=== PATIENT | female | born 1960 | race Caucasian/White ===

== ENCOUNTER 2020-08-16 07:51 | Outpatient (CLI) | payer BC, SELFPAY ==
--- NOTE | 2020-08-16 07:53 | US_ITS ---
WS: [id number] RIGHT UPPER QUADRANT ULTRASOUND HISTORY: ELEVATED LFT'S COMPARISON: 08/04/2018 Liver: 16.4 cm in length. Liver is top normal size with moderate hepatic steatosis. No bile duct dila tation or mass. Gallbladder: Normally distended gallbladder with no stones or wall thickening. CBD: 0.4 cm Pancreas: Normal size and echogenicity. Right kidney: 9.6 cm in length. Normal size and echogenicity. No hydronephrosis or mass. Aorta and IVC: Unremarkable abdominal aorta and IVC. No ascites. US/US gall bladder [id number] IMPRESSION: 1. Normal gallbladder. 2. Moderate hepatic steatosis.
== END 2020-08-16 07:52 | disposition home or self-care (01) ==
LOC: US 07:52
PROVIDERS: PCP Family Medicine; Visit Provider Family Medicine
DX: R79.89 Other specified abnormal findings of blood chemistry (principal); K76.0 Fatty (change of) liver, not elsewhere classified; Z86.010 Personal history of colon polyps
CPT/HCPCS: 76705; 87635

== ENCOUNTER → 2020-12-20 14:22 | Outpatient (BNVA) | payer BC, SELFPAY | PROVIDERS: PCP Family Medicine; Visit Provider Surgery | DX: Z20.822 Contact with and (suspected) exposure to COVID-19 (principal); Z86.010 Personal history of colon polyps | CPT/HCPCS: 87635 ==

== ENCOUNTER 2020-12-25 07:00 | Day surgery (SDC) | payer BC, SELFPAY ==
[2020-12-23 12:38] VITALS: BMI 24.6
[2020-12-25 07:25] VITALS: BP 139/77; PULSE 102; RESP 16; TEMP 36.3; O2SAT 99
[2020-12-25] MEDS: sodium chloride 0.9% 1,000 ML 30 ML IV (07:39)
--- NOTE | 2020-12-25 07:43 | ANES.PREANE2 ---
Pre-Anesthetic Assessment Pre-Anesthetic Assessment: Height/Weight: Height 1.65 m Weight 67.132 kg Temp Pulse Resp BP Pulse Ox 97.3 F L 102 H 16 139/77 99 12/25/20 07:25 12/25/20 07:25 12/25/20 07:25 12/25/20 07:25 12/25/20 07:25 Preop Diagnosis: History of colon polyps Proposed Procedure: Operation Date: 12/25/20 08:00 Proposed Procedures p Colonoscopy 70392 Z86.010(Not Applicable) - Edwin Garg MD Was Beta Clifford taken within 24 hours: N/A Last intake: Intake Last Liquid Date 12/24/20 Last Liquid Time 21:00 Last Solid Date 12/23/20 Last Solid Time 21:00 Social: Social History: Alcohol and Tobacco Exam: Pre-Anes Outpt Exam: alert, oriented x 3 and regular rate & rhythm Additional Exam Findings (including area of procedure): rhonchi Airway: Submandibular: WNL Cervical ROM: WNL MP: 2 Dentition: False Pulmonary: Pulmonary: COPD GI: GI: GERD Anesthetic Plan: ASA status: 3 Anesthesia: MAC Risk of > 500 ml blood loss (7ml/kg in children): No Meds/Allergies Current Medications: Current Medications Generic Name Dose Route Start Last Admin Trade Name Freq PRN Reason Stop Dose Admin Sodium Chloride 1,000 mls @ 30 ml s/hr 12/25/20 07:30 12/25/20 07:39 Sodium Chloride 0.9% IV 30 mls/hr .Q24H PIPER Administration PFSH Anesthesia PFSH: Medical History History of colon polyps Family History Denies family history of Anesthesia complication Bleeding disorder Social History Smoking and tobacco status: current every day smoker Alcohol intake: former Data Anesthesia Cardiac Studies: No Data to Display
--- NOTE | 2020-12-25 08:25 | W.PM.OPSUD ---
Surgery/Procedure H&P Update DATE OF PROCEDURE: December 25, 2020 DATE H&P PERFORMED: 12/02/20 H&P UPDATE INFORMATION: I have reviewed H&P completed within last 30 days, I have examined patient prior to procedure and No changes to prior documentation PREOP DIAGNOSIS: History of colon polyps PRIMARY INDICATION FOR PROCEDURE: The same PLANNED PROCEDURE: Operation Date: 12/25/20 08:00 Proposed Procedures p Colonoscopy 78104 Z86.010(Not Applicable) - Edwin Garg MD
[2020-12-25 08:53] VITALS: BP 143/96; PULSE 80; RESP 18; TEMP 36.1; O2SAT 100
--- NOTE | 2020-12-25 10:25 | ANE.PACU2 ---
Inpatient post-anesthesia follow up: Airway intact: Yes Vital signs: Temperature 97.0 F Pulse Rate 80 Respiratory Rate 18 Blood Pressure 143/96 Pulse Oximetry 100 Oxygen Delivery Me thod Room Air Oxygen Flow Rate Fraction of Inspir ed Oxygen Hydration adequate: Yes Nausea and vomiting: No Pain level: 1 Mental status: Baseline
== END 2020-12-25 09:15 | disposition home or self-care (01) ==
PROVIDERS: PCP Family Medicine; Visit Provider Surgery
PROC: 0DJD8ZZ Inspection of Lower Intestinal Tract, Via Natural or Artificial Opening Endoscopic (ICD-10-PCS; CPT 45378; principal; 2020-12-25 08:00)
DX: Z86.010 Personal history of colon polyps (principal); J44.9 Chronic obstructive pulmonary disease, unspecified; K21.9 Gastro-esophageal reflux disease without esophagitis; F17.210 Nicotine dependence, cigarettes, uncomplicated
CPT/HCPCS: 45378; J2704; J7030

== ENCOUNTER 2021-08-29 08:25 | Outpatient (CLI) | payer BC, SELFPAY ==
--- NOTE | 2021-08-29 08:45 | MR_ITS ---
WS: [id number] MRI BRAIN WITH AND WITHOUT CONTRAST HISTORY: HEADACHE, POST TRAUMATIC COMPARISON: CT head 08/09/2018 TECHNIQUE: Multiplanar imaging performed through the brain with MultiHance 12 ml's IV. No acute infarcts are seen. Wilkerson-white matter differentiation is well preserved. Mild symmetric cereb ral atrophy. There are a few scattered T2 and FLAIR signal hyperintensities which are appropriate for the patient's age. No large infarcts. No susceptibility artifacts or prior lacunar infarcts. Ventricles and extra-axial spaces are normal. Clivus and pituitary gland are normal. Visualized posterior fossa and brainstem are also normal. Postcontrast images are negative for masses or vascular malformations. Dural venous sinuses are normal. Paranasal sinuses: Well aerated with no significant disease. Mastoid air cells: Normal. Calvarium and scalp: Normal. MR/MR head wo/w con [id number] IMPRESSION: 1. No acute hemorrhage or infarct. 2. Mild symmetric atrophy and very mild chronic microvascular ischemic type ch anges that are probably related to aging. 3. No enhancing mass or vascular malformations.
[2021-08-29] MEDS: gadobenate dimeglumine 20 mL vial IV (09:29)
== END 2021-08-29 08:26 | disposition home or self-care (01) ==
PROVIDERS: PCP Family Medicine; Visit Provider Family Medicine
DX: G44.309 Post-traumatic headache, unspecified, not intractable (principal); G31.9 Degenerative disease of nervous system, unspecified; I67.82 Cerebral ischemia
CPT/HCPCS: 70553; A9577

== ENCOUNTER 2021-10-03 09:44 | Emergency (ER) | payer BC, SELFPAY ==
[2021-10-03 10:16] VITALS: BP 126/81; PULSE 86; RESP 18; TEMP 37.3; O2SAT 98; BMI 24.1
--- NOTE | 2021-10-03 10:23 | XRR_ITS ---
PROCEDURE INFORMATION: Exam: XR Chest Exam date and time: 10/03/2021 10:23 AM Age: 61 years old Clinical indication: Dyspnea; Patient HX: History--n/v x 4 days TECHNIQUE: Imaging protocol: XR of the chest. Views: 1 view. Total images: 1 COMPARISON: CR Chest 1 [place] [id number] 08/09/2018 7:43 AM FINDINGS: Lungs: Unremarkable. No consolidation. Pleural spaces: Unremarkable. No pleural effusion. No pneumothorax. Heart/Mediastinum: Unremarkable. No cardiomegaly. Vasculature: Atherosclerosis is evident. Bones/joints: Unremarkable. XR/XR chest 1V portable [id number] IMPRESSION: No acute findings. Radiation Dose CTDIVOL = (mGy): DLP = (mGy-cm)
--- NOTE | 2021-10-03 10:40 | W.ED.GENADLT ---
HPI - General Adult General: Chief complaint: General Medical Stated complaint: SICK X 4 DAYS: N/V/D, STATES NO FEVER Time Seen by Provider: 10/03/21 10:22 History of Present Illness: HPI narrative: CC: Shortness of breath, fever and generalized weakness HPI: This is a [61] yo patient w/ no PMH presenting to the ED with malaise, generalized weakness, cough, nausea/vomiting/ diarrhea x 4days. Patient tells me both she and her mother has had similar symptoms for the last 4 days after celebrating Thanksgiving. Since onset of symptoms, has had some shortness of breath and decreased PO intake. NO recent travel. Denies chest pain, N/V, diaphoresis, exertional shortness of breath, GI or other complaints. Denies any pleuritic chest pain, recent surgery/immobilization/travel, or hematemesis or hx of VTE in the past. Onset: [4] days ago Duration: ongoing for the last [4] days Location: home Severity: mild/moderate Review of Systems Narrative: Constitutional: No subjective fever, no generalized weakness HEENT: No vision changes CV: No chest pain, no palpitations PULM: +cough, no dyspnea. GI: +diffuse abdominal pain, +N/+V/+D. : No dysuria MSKEL: No muscle pain SKIN: No new rashes, no lesions. NEURO: No headache, no focal weakness. +headace HEME: No visible bruises PSYCH: Normal mood [facility] PFSH: Medical History (Updated 10/03/21 @ 10:45 by Nata Seals MD) History of colon polyps Family History Denies family history of Anesthesia complication Bleeding disorder Social History Smoking and tobacco status: current every day smoker Alcohol intake: former Physical Exam Narrative: EXAM NARRATIVE: Head: Atraumatic Eyes: PERRL, conjunctiva without injection ENT: Mucous membrane moist NECK: Supple without lymphadenopathy LUNGS: LCTAB CV: RRR ABDOMEN: Soft, +mild diffuse tenderness to palpatio. NO guarding rebound, guarding, rigidity. No CVA tenderness to percussion. Neg Garcia/Neg McBurney's point tenderness, no suprabupic tenderness to palpation. EXTREMITY: Normal ROM SKIN: No rash or erythema NEURO: Awake and alert. No focal motor deficits. PSYCH: Normal mood and affect. Course Vital Signs: Vital signs: Vital Signs Temperature 99.1 F 10/03/21 10:16 Pulse Rate 82 10/03/21 15:33 Respiratory Rate 18 10/03/21 15:33 Blood Pressure 121/80 10/03/21 15:33 Pulse Oximetry 99 10/03/21 15:33 MDM - General Adult MDM Narrative: Medical decision making narrative: [61]yo patient presenting to the ED with shortness of breath, cough, and malaise concerning for pneumonia with findings of fever, decreased/junky breath sounds, and tachypnea. Workup today includes XR chest Defer lab work at this time given that the patient is well appearing with stable vital signs and without recent hospitalization or care facility stay. Given History, Exam, and Workup presentation most consistent with pneumonia.Presentation not consistent with PE, COPD exacerbation, Pneumothorax, TB, Atypical ACS, Esophageal Rupture, Toxic Exposure, Foreign Body Airway Obstruction. Workup: CBC, BMP, covid PCR/antigen, influenza Intervention: Tylenol, benadryl, reglan, IVF, po challenge, reassess On reassessment, XR without any focal consolidations. Findings consistent with viral pneumonia, suspected COVID. Clinically, fever improved with tylenol. Patient is no longer in respiratory distress, tolerating PO, and able to ambulate. The patient continues to be hemodynamically stable while observed in the ED, in no acute respiratory distress. O2 sats > 95% while observed in the ER. No significant comorbidities today which indicate that the patient is a candidate for outpatient care. Plan discussed with the patient who agrees with outpatient evaluation. Rx: Tylenol 500mg Q6HRs PRN fever/pain, zofran PRN nausea/vomiting, pepcid/maalox PRN dyspesia Disposition: Discharge. Strict return instructions discussed at bedside including any signs of respiratory distress, dehydration, persistent fever, or any new or concerning symptoms. Patient in agreement with the plan and reassures me that the patient will follow up a primary care provider in 24-48 hrs for revaluation. Lab Data: Labs: Lab Results 10/03/21 10/03/21 10/03/21 11:20 11:20 11:20 WBC 5.1 10^3/uL 10^3/ uL (4.0-10.0) RBC 4.34 10^6/uL 10^6 /uL (4.1-5.3) Hgb 14.0 g/dL g/dL (11.5-15.3) Hct 40.2 % % (37.0-47.0) MCV 92.6 fl fl (81-99) MCH 32.3 pg pg (28.0-34.0) MCHC 34.8 g/dL g/dL (30.0-36.0) RDW 20.4 % H % (12.1-15.1) Plt Count 147 10^3/cmm 10^3 /cmm (130-400) MPV 9.6 fL fL (7.4-10.4) Neut % (Auto) 69.8 % % Lymph % (Auto) 24.9 % % [place] % (Auto) 4.1 % % Eos % (Auto) 0.2 % % Baso % (Auto) 0.8 % % Neut # (Auto) 3.56 10^3/uL 10^3 /uL (1.8-7.7) Lymph # (Auto) 1.3 10^3/uL 10^3/ uL (0.8-4.8) [place] # (Auto) 0.2 10^3/uL 10^3/ uL (0.2-0.9) Eos # (Auto) 0.0 10^3/uL 10^3/ uL (0.0-0.8) Baso # (Auto) 0.0 10^3/uL 10^3/ uL (0.0-0.1) Nucleated RBC % (a uto) 0 % % Nucleated RBCs # 0.0 /100WBC /100W BC Sodium 133 mmol/L L mmol /L (136-145) Potassium 3.0 mmol/L L mmol /L (3.5-5.1) Chloride 90 mmol/L L mmol/ L (98-107) Carbon Dioxide 26 mmol/L mmol/L (22-29) Anion Gap 20.0 H (5-19) BUN 17 mg/dL mg/dL (6-20) Creatinine 0.4 mg/dL L mg/dL (0.5-0.9) GFR Calculation 163.4 mL/min H mL /min (90-130) Glucose 87 mg/dL mg/dL (65-115) Calculated Osmolal ity 277 mOsm/kg L mOs m/kg (285-295) Calcium 8.9 mg/dL mg/dL (8.5-10.5) Total Bilirubin 1.1 mg/dL mg/dL (0.15-1.2) AST 421 U/L H U/L (0-32) ALT 110 U/L H U/L (0-33) Alkaline Phosphata se 280 IU/L H IU/L (35-105) Total Protein 6.3 g/dL L g/dL (6.6-8.7) Albumin 3.5 g/dL g/dL (3.5-5.2) Globulin 2.8 g/dL g/dL (1.3-4.6) Lipase 18 U/L U/L (13-60) Nasal/Oral COVID-1 9 PCR Influenza Type A A g Negative (Negative) Influenza Type B A g Negative (Negative) SARS-CoV-2 RNA (RT -PCR) SARS-CoV-2 Ag (Rap id) 10/03/21 10/03/21 10/03/21 11:20 11:20 11:20 WBC RBC Hgb Hct MCV MCH MCHC RDW Plt Count MPV Neut % (Auto) Lymph % (Auto) [place] % (Auto) Eos % (Auto) Baso % (Auto) Neut # (Auto) Lymph # (Auto) [place] # (Auto) Eos # (Auto) Baso # (Auto) Nucleated RBC % (a uto) Nucleated RBCs # Sodium Potassium Chloride Carbon Dioxide Anion Gap BUN Creatinine GFR Calculation Glucose Calculated Osmolal ity Calcium Total Bilirubin AST ALT Alkaline Phosphata se Total Protein Albumin Globulin Lipase Nasal/Oral COVID-1 9 PCR Cancelled Influenza Type A A g Influenza Type B A g SARS-CoV-2 RNA (RT -PCR) Not detected (NOT DETECTED) SARS-CoV-2 Ag (Rap id) Negative (Negative) Imaging Data^: Other Imaging: Radiologist's impression: [address] [id number] ReportSigned Patient: Martha Rubio Biachaparrita #: [id number]: 2Acct#:[id number]/Sex: 61 / FADM Date: 10/03/21Loc: ERRoom/Bed:Attending Dr: Ordering Provider/Ordering MD: Nata Seals MD Date of Service: 10/03/21 Procedure(s): XR chest 1V portable [id number] Accession Number(s): [id number] Report Number: [id number] PROCEDURE INFORMATION: Exam: XR Chest Exam date and time: 10/03/2021 10:23 AM Age: 61 years old Clinical indication: Dyspnea; Patient HX: History--n/v x 4 days TECHNIQUE: Imaging protocol: XR of the chest. Views: 1 view. Total images: 1 COMPARISON: CR Chest 1 [place] [id number] 08/09/2018 7:43 AM FINDINGS: Lungs: Unremarkable. No consolidation. Pleural spaces: Unremarkable. No pleural effusion. No pneumothorax. Heart/Mediastinum: Unremarkable. No cardiomegaly. Vasculature: Atherosclerosis is evident. Bones/joints: Unremarkable. XR/XR chest 1V portable [id number] IMPRESSION: No acute findings. Radiation Dose CTDIVOL = (mGy): DLP = (mGy-cm) Dictated By:Roberto Villa MDSigned By:Roberto Villa MDSigned Date/Time:10/03/21 1132DD/ 1023 Discharge Plan Discharge Patient Disposition: Home Clinical Impression: Headache, Nausea, Diarrhea, Generalized weakness Condition: Stable Prescriptions: New acetaminophen 500 mg tablet 500 mg PO Q6H PRN (Reason: pain) 5 Days Qty: 20 RF: 0 Pepcid 20 mg tablet 20 mg PO BID PRN (Reason: abdominal pain) 10 Days Qty: 20 RF: 0 Maalox Advanced 1,000-60 mg tablet,chewable 1 tab PO TID PRN (Reason: abdominal pain) 7 Days Qty: 21 RF: 0 potassium chloride 10 mEq capsule, extended release 10 meq PO DAILY 5 Days RF: 0 No Action budesonide-formoterol [Symbicort] 160-4.5 mcg/actuation Hfa Aerosol Inhaler 2 puff INHALATION BID PRN (Reason: Shortness Of Breath) RF: 0 Excedrin Extra Strength 250-250-65 mg Tablet 2 tab PO Q6H PRN (Reason: Headache) RF: 0 Discharge Orders: Discharge ED (Routine); Ordered 10/03/21 Ordered By: Nata Seals Referrals: Mino Patrick MD [Primary Care Provider] - Discharge Diet: Advance as tolerated Discharge Activity: Resume usual activity Activity Restrictions/Additional Instructions: Come back to the emergency room if your symptoms worsen, have any shortness of breath, fever/chills, dehydration, inability tolerate p.o., any difficulty breathing, or any new or concerning complaints. Coding Level of Care Code ED Knobber for Angella Lara
[2021-10-03] MEDS: sodium chloride 0.9% 1,000 ML 999 ML IV (11:15)
[2021-10-03] MEDS: ondansetron 2 mg/ML SDV 2 mL 4 MG IVP (11:18)
[2021-10-03] MEDS: diphenhydrAMINE 50 mg/mL SDV 1mL IVP (11:19)
[2021-10-03] MEDS: metoclopramide 5 mg/mL SDV 2 mL IVP (11:23)
[2021-10-03] MEDS: acetaminophen 500 mg Tablet 1000 MG PO (11:24)
[2021-10-03 11:45] LABS: Basophils % 0.8 %; Eosinophils % 0.2 %; Hematocrit 40.2 % (37.0-47.0); Lymphocytes # 1.3 10^3/uL (0.8-4.8); Lymphocytes % 24.9 %; Mean Corpuscular HGB Conc 34.8 g/dL (30.0-36.0); Mean Corpuscular Hemoglobin 32.3 pg (28.0-34.0); Mean Corpuscular Volume 92.6 fl (81-99); Mean Platelet Volume 9.6 fL (7.4-10.4); Monocytes # 0.2 10^3/uL (0.2-0.9); Monocytes % 4.1 %; Neutrophils # 3.56 10^3/uL (1.8-7.7); Neutrophils % 69.8 %; Nucleated Red Blood Cells % 0 %; Platelet Count 147 10^3/cmm (130-400); Red Blood Count 4.34 10^6/uL (4.1-5.3); Red Cell Distribution Width 20.4 % (12.1-15.1); White Blood Count 5.1 10^3/uL (4.0-10.0)
[2021-10-03 12:12] LABS: Alanine Aminotransferase 110 U/L (0-33); Albumin Level 3.5 g/dL (3.5-5.2); Alkaline Phosphatase 280 IU/L (35-105); Aspartate Amino Transferase 421 U/L (0-32); Blood Urea Nitrogen 17 mg/dL (6-20); Calcium 8.9 mg/dL (8.5-10.5); Carbon Dioxide 26 mmol/L (22-29); Chloride 90 mmol/L (98-107); Globulin 2.8 g/dL (1.3-4.6); Glomerular Filtration Rate 163.4 mL/min (90-130); Glucose 87 mg/dL (65-115); Lipase 18 U/L (13-60); Osmolality Calculated 277 mOsm/kg (285-295); Sodium 133 mmol/L (136-145); Total Bilirubin 1.1 mg/dL (0.15-1.2); Total Protein 6.3 g/dL (6.6-8.7)
[2021-10-03 12:55] LABS: SARS Covid-2 Antigen Negative (Negative)
[2021-10-03 13:02] LABS: Influenza A by IFA Negative (Negative); Influenza B by IFA Negative (Negative)
[2021-10-03] MEDS: potassium chloride ER 20 mEq Tablet 40 MEQ PO (13:23)
[2021-10-03 15:33] VITALS: BP 121/80; PULSE 82; RESP 18; O2SAT 99
[2021-10-04 14:47] LABS: Quest SARS-CoV-2 RNA NOT DETECTED (NOT DETECTED)
--- NOTE | 2021-10-04 16:15 | PC.NURSE ---
Pt notifed of Negative COVID results
--- NOTE | 2021-10-04 16:18 | PC.NURSE ---
Pt notified of Negative COVID result
== END 2021-10-03 15:34 | disposition home or self-care (01) ==
PROVIDERS: Emergency Provider Emergency Medicine; PCP Family Medicine
DX: R51.9 Headache, unspecified (principal); R11.0 Nausea; R19.7 Diarrhea, unspecified; R53.1 Weakness; F17.210 Nicotine dependence, cigarettes, uncomplicated; Z20.822 Contact with and (suspected) exposure to COVID-19
CPT/HCPCS: 71045; 80053; 83690; 85025; 87426; 87635; 87804; 96361; 96374; 96375; 99284; J1200; J2405; J2765; J7030

== ENCOUNTER → 2022-04-01 13:25 | Outpatient (BNVA) | payer BC, SELFPAY | PROVIDERS: PCP Family Medicine; Visit Provider Family Medicine | DX: R63.4 Abnormal weight loss (principal); R05.9 Cough, unspecified; R79.89 Other specified abnormal findings of blood chemistry | CPT/HCPCS: 80053; 83690; 83880; 85025; 85651; 86140 ==

== ENCOUNTER 2022-04-15 13:46 | Outpatient (CLI) | payer BC, SELFPAY ==
--- NOTE | 2022-04-15 14:13 | CT_ITS ---
WS: [id number] CT CHEST AND ABDOMEN WITH CONTRAST. CONTRAST HISTORY: WEIGHT LOSS/COUGH/ELEVATED LFT'S TECHNIQUE: Axial imaging is performed through the chest and abdomen with IV and oral contrast.. Sagit dot and coronal reformats. All CT scans at [facility] use at least one of these dose optimiza tion techniques: automated exposure control; mA and/or kV adjustment per patient size (includes targe zeke exams where dose is matched to clinical indication); or iterative reconstruction. CONTRAST: Omnipaque 300; 75 mL IV. DLP: 958.57 mGy.cm COMPARISON: Chest CT 01/26/[address] 03/27/2010, gallbladder ultrasound 08/16/[address]: Mild chronic emphysema. New pulmonary nodule LEFT upper lobe is slightly spiculated measuring 9 x 6 m m with adjacent subsolid opacification. No additional nodules or mass. No pneumonia. Normal size hear t. Moderate atherosclerotic plaque throughout the aorta. Pulmonary artery size is normal. No pulmonar y embolism. No enlarged lymph nodes. No pleural or pericardial effusion. Dense fibroglandular tissue within each breast and calcifications. No prior mammograms available for comparison or review. Abdomen CT: Liver is top normal size. Spleen measures 10.5 cm in length. No bile duct dilatation. Normal appearan ce of the portal vein. The gallbladder is contracted with wall enhancement and adjacent fluid. Suspec t there may be stones present within the gallbladder. The common bile duct remains normal. Pancreas a nd adrenal glands are negative. No renal obstruction. LEFT renal cyst lower pole measures 3.3 x 3.7 c m. Abdominal aorta is mildly ectatic with extensive atherosclerotic plaque. There is calcified plaque wi th asymmetric thrombus within the lumen. Maximum diameter 2.8 cm. Moderate calcification extends into the proximal iliac arteries. No ascites or adenopathy. Visualized GI tract is negative. CT/CT chest abdomen w con* IMPRESSION: 1. New LEFT upper lobe pulmonary nodule measures 9 x 6 mm. Early neoplasm need s to be considered. Recommend follow-up PET/CT imaging or [address] foll ow-up. 2. No mediastinal or hilar adenopathy. 3. Abnormal gallbladder. Contracted gallbladder with enhancement and increased attenuation. Recommend follow-up gallbladder ultrasound to evaluate for acute versus chronic cholecystitis. Gallbladder ultrasound was normal on 08/16/2020. 4. No bile duct dilatation. 5. Moderate atherosclerotic plaque throughout the abdominal aorta with no aneu rysm. 6. LEFT renal cyst. 7. Dense breasts with calcifications. Mammographic evaluation of the breasts s hould be considered. 8. Emphysema.
[2022-04-15] MEDS: iohexol 300 mg/mL 50 mL Btl PO (14:23)
[2022-04-15] MEDS: iohexol 300 mg/mL 100 mL Btl IV (15:27)
== END 2022-04-15 13:47 | disposition home or self-care (01) ==
PROVIDERS: PCP Family Medicine; Visit Provider Family Medicine
DX: R63.4 Abnormal weight loss (principal); R05.9 Cough, unspecified; R79.89 Other specified abnormal findings of blood chemistry
CPT/HCPCS: 71260; 74160

== ENCOUNTER 2022-05-08 06:02 | Outpatient (CLI) | payer BC, SELFPAY ==
--- NOTE | 2022-05-08 11:42 | MM_ITS ---
WS: [id number] BILATERAL SCREENING DIGITAL BREAST TOMOSYNTHESIS MAMMOGRAM WITH CAD HISTORY: SCREENING COMPARISON: 01/10/2014 Bilateral CC and MLO views with tomosynthesis and synthetic mammography submitted. Computer aided det ection analyzed. Breast composition: The breasts are heterogeneously dense, which may obscure small masses. No suspici ous masses, microcalcifications or architectural distortion. Numerous calcifications have developed w ithin each breast centrally since the prior study. These are very dense coarse calcifications. MM/[place] [id number] IMPRESSION: BI-RADS: 2-Benign FOLLOW UP: 1 Year Follow-up
== END 2022-05-08 06:03 | disposition home or self-care (01) ==
LOC: RAD 06:03
PROVIDERS: PCP Family Medicine; Visit Provider Family Medicine
DX: Z12.31 Encounter for screening mammogram for malignant neoplasm of breast (principal)
CPT/HCPCS: 77063; 77067

== ENCOUNTER 2022-05-08 06:03 | Outpatient (CLI) | payer BC, SELFPAY ==
--- NOTE | 2022-05-08 06:15 | US_ITS ---
WS: [id number] RIGHT UPPER QUADRANT ULTRASOUND HISTORY: RUQ PAIN COMPARISON: 08/16/2020 Liver: 16.5 cm in length. Normal size liver. Very mild coarse echotexture. No mass or bile duct dilat ation. Portal Vein: Normal hepatopetal flow with monophasic waveform. Gallbladder: Contracted gallbladder filled with stones. There may be a small amount of sludge also wi thin the gallbladder lumen. CBD: 0.2 cm Pancreas: Partially visualized. No abnormality detected. Right kidney: 10.4 cm in length. Normal size and echogenicity. No hydronephrosis or mass. Aorta and IVC: Unremarkable abdominal aorta and IVC. No ascites. US/US gall bladder [id number] IMPRESSION: 1. Stone filled contracted gallbladder. No bile duct dilatation. Stones were n ot identified on the prior ultrasound of 08/16/2020. 2. Minimal hepatic steatosis. Improved overall since the prior study.
== END 2022-05-08 06:04 | disposition home or self-care (01) ==
LOC: RAD 06:03
PROVIDERS: PCP Family Medicine; Visit Provider Family Medicine
DX: R10.11 Right upper quadrant pain (principal); K80.20 Calculus of gallbladder without cholecystitis without obstruction
CPT/HCPCS: 76705

== ENCOUNTER 2022-06-29 10:26 | Day surgery (SDC) | payer BC, SELFPAY ==
[2022-06-29] VITALS (8 sets, daily range): BP systolic 126–158; BP diastolic 80–92; PULSE 69–82; RESP 18–19; TEMP 36.1–36.7; O2SAT 95–100
--- NOTE | 2022-06-29 11:05 | ANES.PREANE2 ---
Pre-Anesthetic Assessment Height/Weight: Height 1.65 m Weight 54.431 kg Temp Pulse Resp BP Pulse Ox O2 Del Method 97.3 F L 77 18 150/91 95 06/29/22 10:48 06/29/22 10:48 06/29/22 10:48 06/29/22 10:48 06/29/22 10:48 06/29/22 10:53 Preop Diagnosis: Symptomatic cholelithiasis Operation Date: 06/29/22 12:05 Proposed Procedures p Laparoscopic Cholecystectomy(Not Applicable) - Austin Mcadams DO Familial anesthetic complications: None Was Beta Clifford taken within 24 hours: N/A Was Clonidine taken within 24 hours: N/A Last intake: Intake Last Liquid Date 06/28/22 Last Liquid Time 18:00 Last Solid Date 06/28/22 Last Solid Time 18:00 Social Alcohol (1-2 vodkas a night) and Tobacco Exam alert, oriented x 3, clear to auscultation bilaterally and regular rate & rhythm Airway Mallampati: Class III Dentition: other (no teeth) Pulmonary Chronic Obstructive Pulmonary Disease CV/HEM None reported GI Gastroesophageal Reflux Disease Anesthetic Plan ASA status: 3 Anesthesia: General Risk of > 500 ml blood loss (7ml/kg in children): No Medications/Allergies Home Medications Medication Instructions Recorded Confirmed Last Taken Type vpnpzcw-sufegbzqretvn-uzggyhoy 250 2 tab PO Q6H PRN Headache 12/23/20 06/29/22 06/26/22 History mg-250 mg-65 mg tablet (Excedrin Extra Strength) budesonide-formoterol HFA 160 2 puff inhalation BID PRN 12/23/20 06/29/22 06/28/22 History mcg-4.5 mcg/actuation aerosol Shortness Of Breath inhaler (Symbicort) acyclovir 200 mg capsule 200 mg PO DAILY 06/03/22 06/29/22 06/28/22 History rabeprazole 20 mg tablet,delayed 20 mg PO DAILY 06/03/22 06/29/22 06/28/22 History release Allergies Allergy/AdvReac Type Severity Reaction Status Date / Time No Known Allergies Allergy Verified 06/03/22 09:15 [facility] Anesthesia Medical History (Updated 06/03/22 @ 09:40 by Austin Mcadams DO) History of colon polyps Symptomatic cholelithiasis Surgical History History of colonoscopy with polypectomy (~2014) History of hysterectomy History of laparoscopic appendectomy Family History Denies family history of Anesthesia complication Bleeding disorder Social History Smoking and tobacco status: current every day smoker Alcohol intake: former Data Anesthesia Cardiac Studies: No Data to Display
[2022-06-29] MEDS: sodium chloride 0.9% 1,000 ML 30 ML IV (11:22)
--- NOTE | 2022-06-29 13:19 | W.PM.OPSUD ---
Surgery/Procedure H&P Update DATE OF PROCEDURE: June 29, 2022 DATE H&P PERFORMED: 06/03/22 PREOP DIAGNOSIS: Symptomatic cholelithiasis PLANNED PROCEDURE: Operation Date: 06/29/22 12:05 Proposed Procedures p Laparoscopic Cholecystectomy(Not Applicable) - Austin Mcadams DO
[2022-06-29] MEDS: ceFAZolin 2,000 MG in sodium chloride 0.9% (plus) 50 ML 100 MG IV (13:26)
--- NOTE | 2022-06-29 14:13 | P.OP_ITS ---
Operative Report Date of procedure: June 29, 2022 Pre-op diagnosis: Preop Diagnosis Symptomatic cholelithiasis Post-op diagnosis: same Procedure done: Laparoscopic cholecystectomy Specimens removed/disposition: Gallbladder Surgeon: Dr. Austin Mcadams DO Anesthesia: General Estimated blood loss (mL): 5 Complications: None apparent Brief History: Patient with symptomatic cholelithiasis was a candidate for laparoscopic cholecystectomy. The risks and benefits of the procedure were explained and documented Procedure: Patient was wheeled into the operative room and placed on the OR table in a supine position. Abdomen was inspected prepped and draped in usual sterile fashion. Time-out was performed and all present were in agreement. A 15 blade scalp was used to make a stab incision in the left upper quadrant and intra- abdominal insufflation was achieved using a Veress needle. After localizing the tissue incisions were made and a 5 millimeter trocar was placed into the umbilicus as well as 2 in the right upper quadrant. A 12 millimeter trocar was placed in the epigastrium. Gallbladder was grasped and elevated. The triangle of Calot was carefully dissected using blunt dissection and electrocautery until the triangle of Calot clearly identified. The cystic duct was clipped proximally and double clipped distally. The duct was then ligated proximally. The cystic artery was doubly clipped and ligated. The gallbladder was then removed from the liver bed using electrocautery. The gallbladder was removed from the abdomen using an Endo-Catch bag through the epigastric incision. The liver bed was inspected and no bleeding was seen. The abdomen was irrigated and suctioned. All ports removed. Skin was washed and dried. Incisions were closed with 3-0 and 4-O Vicryl in a subcuticular interrupted fashion. Skin glue was applied. Patient tolerated the procedure well.
[2022-06-29] MEDS: ondansetron 2 mg/ML SDV 2 mL 4 MG IVP (14:35)
--- NOTE | 2022-06-29 14:45 | ANE.PACU2 ---
Inpatient post-anesthesia follow up: Airway intact: Yes Vital signs: Temperature 98.0 F Pulse Rate 72 Respiratory Rate 19 Blood Pressure 139/81 Pulse Oximetry 100 Oxygen Delivery Me thod Room Air Oxygen Flow Rate 6 Fraction of Inspir ed Oxygen Hydration adequate: Yes Nausea and vomiting: No Pain level: 1 Mental status: Baseline
[2022-06-29] MEDS: HYDROcodone-acetaminophen 7.5-325 mg Tablet 1 TAB PO (15:21)
== END 2022-06-29 15:39 | disposition home or self-care (01) ==
PROVIDERS: PCP Family Medicine; Visit Provider Surgery
PROC: 0FT44ZZ Resection of Gallbladder, Percutaneous Endoscopic Approach (ICD-10-PCS; CPT 47562; principal; 2022-06-29 11:55)
DX: K80.10 Calculus of gallbladder with chronic cholecystitis without obstruction (principal); F17.200 Nicotine dependence, unspecified, uncomplicated
CPT/HCPCS: 47562; 88304; J0330; J1100; J2250; J2405; J2704; J2710; J3010; J3490; J7030

== ENCOUNTER 2022-09-23 07:20 | Outpatient (CLI) | payer BC, SELFPAY ==
--- NOTE | 2022-09-23 07:30 | CT_ITS ---
WS: [id number] CT CHEST WITHOUT INTRAVENOUS CONTRAST HISTORY: lung nodule f/u TECHNIQUE: Contiguous 5 mm axial imaging performed on the thorax. Coronal and sagittal reformats are submitted. All CT scans at [facility] use at least one of these dose optimization techniques: automated exposure control; mA and/or kV adjustment per patient size (includes targeted exams where dose is matched to clinical indication); or iterative reconstruction. CONTRAST: None DLP: 605.39 mGy.cm COMPARISON: 04/15/2022 Lungs and central airway: Previously described LEFT upper lobe pulmonary nodule has significantly dec reased in size now measuring 4.7 mm. No new or additional nodules. Mild chronic emphysema. New since the prior study is RIGHT middle lobe atelectasis. There is soft tissue in the proximal RIGHT middle l obe bronchus. This may be mucus obstructing the RIGHT middle lobe. No soft tissue noted in the RIGHT middle lobe bronchus on the prior exam. Pleura: Normal. No pleural effusion. Heart and pericardium: Normal size heart with no pericardial effusion. Mediastinum and chan: No mediastinum or hilar adenopathy. Vessels: Mild atherosclerosis aorta. Chest wall and lower neck: Numerous calcifications in the breasts. No mass. Upper abdomen: Small hiatal hernia. No adrenal mass. Prior cholecystectomy. Osseous structures: No destructive process. CT/CT chest con [id number] IMPRESSION: 1. Significant decrease in size of the LEFT upper lobe pulmonary nodule descri bed on 04/15/2022. Maximum diameter is now 4.7 mm as compared to 9 mm. As this n odule persists consider 6-[address] follow-up. 2. New RIGHT middle lobe atelectasis. There is soft tissue in the proximal RIG HT middle lobe bronchus. This will need to be further evaluated to exclude neop lasm. This may be benign mucous plugging. New finding since 04/15/2022. 3. New prior cholecystectomy.
== END 2022-09-23 07:21 | disposition home or self-care (01) ==
LOC: RAD 07:23
PROVIDERS: PCP Family Medicine; Visit Provider Family Medicine
DX: R91.1 Solitary pulmonary nodule (principal); K44.9 Diaphragmatic hernia without obstruction or gangrene; J98.11 Atelectasis; Z90.49 Acquired absence of other specified parts of digestive tract
CPT/HCPCS: 71250

== ENCOUNTER 2023-05-18 08:13 | Outpatient (CLI) | payer BC, SELFPAY ==
--- NOTE | 2023-05-18 08:39 | MM_ITS ---
WS: [id number] BILATERAL 3D TOMOSYNTHESIS DIGITAL SCREENING MAMMOGRAPHY WITH CAD CLINICAL INFORMATION: SCREENING HISTORY: Screening mammogram. No current complaints. COMPARISON: May 08, 2022 TECHNIQUE: Bilateral CC and MLO views. FINDINGS: The breasts are composed of heterogeneous fibroglandular density tissue, which can limit the detectio n of small underlying mass lesions. No suspicious mass, asymmetry, calcifications, or architectural d istortion. No evidence of malignancy. Coarse dystrophic calcifications bilaterally similar to previou s. MM/[id number] IMPRESSION: BI-RADS: 2-Benign FOLLOW UP: 1 Year Follow-up Recommend return to annual screening mammography.
== END 2023-05-18 08:14 | disposition home or self-care (01) ==
LOC: RAD 08:14 → MOBLMAM 08:40
PROVIDERS: PCP Family Medicine; Visit Provider Family Medicine
DX: Z12.31 Encounter for screening mammogram for malignant neoplasm of breast (principal)
CPT/HCPCS: 77063; 77067

== ENCOUNTER → 2023-09-07 11:31 | Outpatient (BNVA) | payer BC, SELFPAY | PROVIDERS: PCP Family Medicine; Visit Provider Family Medicine | DX: R03.0 Elevated blood-pressure reading, without diagnosis of hypertension (principal); R51.9 Headache, unspecified; L28.0 Lichen simplex chronicus | CPT/HCPCS: 80053; 80061; 85025 ==

== ENCOUNTER → 2023-12-07 09:04 | Outpatient (BNVA) | payer BC, SELFPAY | PROVIDERS: PCP Family Medicine; Visit Provider Family Medicine | DX: E78.5 Hyperlipidemia, unspecified (principal) | CPT/HCPCS: 80053; 80061 ==

== ENCOUNTER → 2023-12-30 16:10 | Outpatient (BNVA) | payer BC, SELFPAY | PROVIDERS: PCP Family Medicine; Visit Provider Family Medicine | DX: D22.9 Melanocytic nevi, unspecified (principal) | CPT/HCPCS: 88305 ==

== ENCOUNTER 2024-01-03 09:02 | Outpatient (CLI) | payer BC, SELFPAY ==
--- NOTE | 2024-01-03 09:30 | CT_ITS ---
WS: [id number] CT ABDOMEN WITHOUT CONTRAST HISTORY: possible ventral hernia Contiguous single phase 5 mm axial imaging performed to the abdomen. Oral contrast has not been provi ded. Coronal and sagittal reformats are submitted. All CT scans at [facility] use at least on e of these dose optimization techniques: automated exposure control; mA and/or kV adjustment per mati ent size (includes targeted exams where dose is matched to clinical indication); or iterative reconst ruction. IV CONTRAST: None Oral contrast: No DLP: 363.74 mGy.cm COMPARISON: 04/15/2022 Lower thorax: Lung bases are clear. Heart is normal size. Large hiatal hernia. Liver/biliary system: Normal size with no intrahepatic dilatation. Gallbladder: Status post cholecystectomy. Pancreas: Normal size pancreas and pancreatic duct. No adjacent inflammation. Spleen: Normal size spleen. No mass or infarct. Adrenal glands: Normal. Right kidney: Normal. Left kidney: Normal. Aorta: Moderate atherosclerotic plaque throughout the abdominal aorta. There is mild aneurysmal dilat ation below the renal arteries. Maximum diameter is 3.0 cm. Plaque continues into the SMA. Lymphadenopathy: None. Free fluid: None. GI tract: Unremarkable. Abdominal wall: Very mild diastases rectus. Umbilical hernia contains fat only. The orifice of the he rnia is 8.4 mm. There is an additional supraumbilical abdominal wall defect measuring 13 mm just to t he RIGHT of midline, 9.3 cm above the umbilical hernia. This hernia also contains fat only. Visualized osseous structures: Unremarkable. IMPRESSION: 1. Small umbilical hernia containing fat only. 2. RIGHT supraumbilical hernia contains fat only. This hernia is 9.3 cm above the umbilicus within o rifice of 13 mm. 3. Prior cholecystectomy. 4. Very small abdominal aortic aneurysm at 3.0 cm.
== END 2024-01-03 09:03 | disposition home or self-care (01) ==
LOC: RAD 09:04
PROVIDERS: PCP Family Medicine; Visit Provider Family Medicine
DX: K42.9 Umbilical hernia without obstruction or gangrene (principal); Z90.49 Acquired absence of other specified parts of digestive tract
CPT/HCPCS: 74150

== ENCOUNTER 2024-05-26 08:15 | Outpatient (CLI) | payer BC, SELFPAY ==
--- NOTE | 2024-05-26 08:22 | MM_ITS ---
WS: [id number] BILATERAL SCREENING DIGITAL TOMOSYNTHESIS MAMMOGRAM WITH CAD HISTORY: SCREENING COMPARISON: 05/18/2023, 05/08/2022 Bilateral CC and MLO views with tomosynthesis and synthetic mammography submitted. Computer aided det ection analyzed. Breast composition: There are scattered areas of fibroglandular density. No suspicious masses, microc alcifications or architectural distortion. Numerous dystrophic calcifications are noted within each b [place]ast. MM/[place] [id number] IMPRESSION: BI-RADS: 2-Benign FOLLOW UP: 1 Year Follow-up
== END 2024-05-26 08:16 | disposition home or self-care (01) ==
LOC: RAD 08:15
PROVIDERS: PCP Family Medicine; Visit Provider Family Medicine
DX: Z12.31 Encounter for screening mammogram for malignant neoplasm of breast (principal); R92.323 Mammographic fibroglandular density, bilateral breasts; R92.1 Mammographic calcification found on diagnostic imaging of breast
CPT/HCPCS: 77063; 77067

== ENCOUNTER → 2024-07-04 09:25 | Outpatient (BNVA) | payer BC, SELFPAY | PROVIDERS: PCP Family Medicine; Visit Provider Family Medicine | DX: E78.5 Hyperlipidemia, unspecified (principal); R03.0 Elevated blood-pressure reading, without diagnosis of hypertension | CPT/HCPCS: 80053; 80061 ==

== ENCOUNTER → 2025-01-02 09:44 | Outpatient (BNVA) | payer BC, SELFPAY | PROVIDERS: PCP Family Medicine; Visit Provider Family Medicine | DX: E78.5 Hyperlipidemia, unspecified (principal); R03.0 Elevated blood-pressure reading, without diagnosis of hypertension; L28.0 Lichen simplex chronicus | CPT/HCPCS: 80053; 80061 ==

== ENCOUNTER 2025-05-29 07:46 | Outpatient (CLI) | payer BC, SELFPAY ==
--- NOTE | 2025-05-29 | MM_ITS ---
WS: [id number] BILATERAL 3D TOMOSYNTHESIS DIGITAL SCREENING MAMMOGRAPHY WITH CAD CLINICAL INFORMATION: ANNUAL SCREENING HISTORY: Screening mammogram. No current complaints. COMPARISON: 2023 TECHNIQUE: Bilateral CC and MLO views. FINDINGS: The breasts are composed of heterogeneous fibroglandular density tissue, which can limit the detection of small underlying mass lesions. No suspicious mass, asymmetry, calcifications, or architectural distortion. No evidence of malignancy. Numerous dystrophic calcifications bilaterally. MM/MM [facility] tomosynthesis [id number] IMPRESSION: DENSITY: The breasts are heterogeneously dense, which may obscure small masses. BI-RADS: 2 - Benign FOLLOW UP: 1 Year Follow-up Recommend return to annual screening mammography.
== END 2025-05-29 07:47 | disposition home or self-care (01) ==
LOC: RAD 07:46
PROVIDERS: PCP Family Medicine; Visit Provider Family Medicine
DX: Z12.31 Encounter for screening mammogram for malignant neoplasm of breast (principal); R92.333 Mammographic heterogeneous density, bilateral breasts; R92.323 Mammographic fibroglandular density, bilateral breasts; R92.1 Mammographic calcification found on diagnostic imaging of breast
CPT/HCPCS: 77063; 77067

== ENCOUNTER → 2025-07-10 09:48 | Outpatient (BNVA) | payer BC, SELFPAY | PROVIDERS: PCP Family Medicine; Visit Provider Family Medicine | DX: E78.5 Hyperlipidemia, unspecified (principal); R03.0 Elevated blood-pressure reading, without diagnosis of hypertension | CPT/HCPCS: 80053; 80061 ==